=== PATIENT | female | born 1975 | race Caucasian/White ===

== ENCOUNTER 2016-12-23 18:22 | Emergency (ER) | payer MEDICAID ==
[~2016-12-23] VITALS: Ht 157.5 cm; Wt 108.6 kg
[2016-12-23 18:24] VITALS: BP 127/78
== END 2016-12-23 19:05 | disposition home or self-care (01) ==
LOC: EDSEX → ED 19:00
DX: J01.00 Acute maxillary sinusitis, unspecified (principal); K02.9 Dental caries, unspecified
CPT/HCPCS: 99283; 99285

== ENCOUNTER 2017-04-09 19:13 | Emergency (ER) | payer MEDICAID ==
[~2017-04-09] VITALS: Ht 157.5 cm; Wt 104.7 kg
[2017-04-09 19:24] VITALS: BP 126/81
[2017-04-09] MEDS ORDERED: METHOCARBAMOL 750 MG TABLET PO ONE (20:00)
[2017-04-09] MEDS ORDERED: KETOROLAC 30 MG/1 ML IM ONE (20:00)
[2017-04-09] MEDS ORDERED: METHOCARBAMOL 750 MG TABLET ONE (20:34)
[2017-04-09] MEDS ORDERED: KETOROLAC 30 MG/1 ML ONE (20:34)
== END 2017-04-09 20:50 | disposition home or self-care (01) ==
LOC: ED 20:44
DX: M54.42 Lumbago with sciatica, left side (principal); F31.9 Bipolar disorder, unspecified
CPT/HCPCS: 96372; 99283; J1885